=== PATIENT | male | born 2005 | race Two or more races ===

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

== ENCOUNTER 2024-05-23 19:54 | Emergency (ER) | payer OTHER ==
[~2024-05-23] VITALS: Ht 188 cm; Wt 72.6 kg
[2024-05-23] MEDS ORDERED: KETOROLAC TROMETHAMINE 10 MG TABLET PO ONE ×2 (20:45→20:49)
== END 2024-05-23 22:48 | disposition home or self-care (01) ==
LOC: ER 19:57 → EMR PED 20:20
DX: M25.462 Effusion, left knee (principal)